=== PATIENT | male | born 2000 | race Caucasian/White ===

== ENCOUNTER 2025-01-30 07:44 | Emergency (ER) | payer SELFPAY | END 2025-01-30 09:06 | disposition home or self-care (01) | LOC: VM.ED 07:44 | DX: S96.912A Strain of unspecified muscle and tendon at ankle and foot level, left foot, initial encounter (principal); Z79.899 Other long term (current) drug therapy; X58.XXXA Exposure to other specified factors, initial encounter; Y93.89 Activity, other specified | CPT/HCPCS: 73630-LT; 99283 ==